=== PATIENT | male | born 1980 | race Two or more races ===

== ENCOUNTER 2017-05-14 13:06 | Emergency (ER) | payer OTHER ==
[~2017-05-14] VITALS: Ht 175.3 cm; Wt 93.0 kg
[2017-05-14 14:25] VITALS: BP 104/83
== END 2017-05-14 14:29 | disposition home or self-care (01) ==
LOC: ER 13:11
DX: M25.531 Pain in right wrist (principal)
CPT/HCPCS: 29125; 73110

== ENCOUNTER 2017-06-15 10:33 | Emergency (ER) | payer OTHER ==
[~2017-06-15] VITALS: Ht 175.3 cm; Wt 95.3 kg
[2017-06-15 10:48] VITALS: BP 132/77
[2017-06-15] MEDS ORDERED: IBUPROFEN 800 MG TAB PO ONE (12:00)
== END 2017-06-15 12:05 | disposition home or self-care (01) ==
LOC: ER 10:33
DX: S82.52XA Displaced fracture of medial malleolus of left tibia, initial encounter for closed fracture (principal); W20.8XXA Other cause of strike by thrown, projected or falling object, initial encounter; Y93.01 Activity, walking, marching and hiking; Y92.89 Other specified places as the place of occurrence of the external cause; Y99.8 Other external cause status
CPT/HCPCS: 29515; 73610